=== PATIENT | female | born 1995 | race Caucasian/White ===

== ENCOUNTER 2016-09-08 13:25 | Emergency (ER) | payer OTHER | END 2016-09-08 15:28 | disposition left against medical advice (07) | LOC: UCCORT 13:25 | DX: Z53.21 Procedure and treatment not carried out due to patient leaving prior to being seen by health care provider (principal) ==

== ENCOUNTER 2016-09-09 07:24 | Emergency (ER) | payer OTHER ==
[2016-09-09 07:39] VITALS: BP 114/71
--- NOTE | 2016-09-09 08:20 | UC ---
Respiratory Complaint HPI - HPI Summary HPI Summary: FOR 10 DAYS, COUGHING- TO THE POINT OF VOMITING. SORE THROAT, HEADACHE. BODYACHES. COUGHING WORSE AT NIGHT, FEELS SHAKEY. Here with MIKAELA Chilo. she has asthma and is sopposed to be on spiriva but has not taken it in several months. has been using alb rescue inhaler, last used yesterday. has not had tylenol or nsaids today. tmax 2 days ago was 99. took leftover codeine cough syrup that did help her last night. does not have nebulizer at home. denies chance of . - History of Current Complaint Chief Complaint: UCRespiratory Stated Complaint: COUGH/SORE THROAT Time Seen by Provider: 09/09/16 07:41 Hx Last Menstrual Period: 08/09/16, HAS PERIODS EVERY 3 MONTHS - Allergies/Home Medications Allergies/Adverse Reactions: Allergies Allergy/AdvReac Type Severity Reaction Status Date / Time environmental Allergy Congestion Uncoded 09/09/16 07:32 PMH/Surg Hx/FS Hx/Imm Hx Previously Healthy: Yes Endocrine History Of: Denies: Diabetes, Thyroid Disease Cardiovascular History Of: Denies: Cardiac Disorders, Hypertension Respiratory History Of: Reports: Asthma Denies: COPD, Bronchitis GI/ History Of: Denies: Ulcer - Surgical History Surgical History: Yes Surgery Procedure, Year, and Place: T & A - Family History Known Family History: Positive: Other - no hx back problems or cancer in either parent Negative: Hypertension, Diabetes, Renal Disease - Social History Alcohol Use: Rare Substance Use Type: None Smoking Status (MU): Never Smoked Tobacco Have You Smoked in the Last Year: No Household Exposure Type: Cigarettes - Immunization History Most Recent Influenza Vaccination: FALL 2015 Hx Tetanus, Diphtheria Vaccination: Yes Vaccination Up to Date: Yes Review of Systems Constitutional: Fatigue Skin: Negative Eyes: Negative ENT: Sore Throat Respiratory: Cough - + wheezing Cardiovascular: Negative Gastrointestinal: Negative Genitourinary: Negative Motor: Negative Neurovascular: Negative Musculoskeletal: Negative Neurological: Negative Psychological: Negative All Other Systems Reviewed And Are Negative: Yes Physical Exam Triage Information Reviewed: Yes Appearance: Well-Nourished, Ill-Appearing - mild, moderate cough. speaks full sentences. Vital Signs: Initial Vital Signs Temp 98 F 09/09/16 07:33 Pulse 85 09/09/16 07:33 Resp 20 01/28/17 07:33 BP 114/71 09/09/16 07:33 Pulse Ox 100 09/09/16 07:33 Vital Signs Reviewed: Yes Eye Exam: Normal ENT: Positive: Hearing grossly normal, Pharyngeal erythema - mild, + PND, Nasal drainage, TMs normal. Negative: Tonsillar swelling, Tonsillar exudate, Muffled/ hoarse voice Dental Exam: Normal Neck exam: Normal Neck: Positive: Supple, Nontender, No Lymphadenopathy Respiratory: Positive: No accessory muscle use, Decreased breath sounds - mild, Wheezing - mild b/l expiratory wheezing and. Negative: Crackles, Rhonchi, Stridor Cardiovascular Exam: Normal Cardiovascular: Positive: RRR, No Murmur, Pulses Normal, Brisk Capillary Refill Abdominal Exam: Normal Abdomen Description: Positive: Nontender, Soft Musculoskeletal Exam: Normal Neurological Exam: Normal Psychological Exam: Normal Skin Exam: Normal UC Diagnostic Evaluation - Laboratory O2 Sat by Pulse Oximetry: 100 Respiratory Course/Dx - Course Course Of Treatment: We discusse risks of prednisone including but not limited to anxiety, agitation, insomnia, GI upset, elevated blood pressures and blood sugar readings, adrenal crisis and avascular necrosis of the hip. We also discussed the importance of compliance with maintenance asthma medication. - Differential Dx/Diagnosis Differential Diagnosis/HQI/PQRI: Asthma, Bronchitis, Sinusitis Provider Diagnoses: asthmatic bronchitis Discharge - Discharge Plan Condition: Stable Disposition: HOME Prescriptions: Amoxicillin CAP* 500 mg PO TID #30 cap Benzonatate CAP* [Tessalon CAP*] 100 mg PO TID PRN #30 cap PRN Reason: Cough Methylprednisolone [Medrol Dosepak 4 MG*] 4 mg PO DAILY #1 julio Patient Education Materials: Asthma (ED), Acute Bronchitis (ED) Referrals: Valeria Cui MD [Primary Care Provider] - 3 Days Additional Instructions: Make sure to restart the spiriva and remain compliant with it. You should use the albuterol every 4-6 hrs until 2-3 days after your symptoms resolve. fluids and rest.
== END 2016-09-09 08:36 | disposition home or self-care (01) ==
LOC: UCCORT 07:24
DX: J45.909 Unspecified asthma, uncomplicated (principal); Z77.22 Contact with and (suspected) exposure to environmental tobacco smoke (acute) (chronic)
CPT/HCPCS: 99212; G0463

== ENCOUNTER 2017-01-09 21:31 | Emergency (ER) | payer MEDICAID, OTHER ==
[2017-01-09] MEDS ORDERED: Amoxicillin/Clavulanate TAB* 875 MG PO ONE (22:17)
[2017-01-09] MEDS ORDERED: Acetaminop/Codeine 30 MG TAB* 1 TAB (300 MG/30 MG) PO ONE (22:18)
[2017-01-09 22:22] VITALS: BP 111/69
--- NOTE | 2017-01-09 22:50 | RAD ---
INDICATION: Headaches after head injury COMPARISON: None TECHNIQUE: Noncontrast axial source images were acquired from the skull base to the vertex. FINDINGS: Ventricles/sulci: The ventricles and cisterns are normal in size and configuration for age. Brain parenchyma: There is no focal parenchymal finding, evidence of intracranial mass, or intracranial mass effect. Intracranial hemorrhage:None. Extra-axial spaces: There are no abnormal extra axial fluid collections or evidence of extra-axial mass. Calvarium: There is no calvarial fracture or other calvarial abnormality. Scalp: There is no evidence of scalp or extracalvarial soft tissue abnormality. Paranasal sinuses/mastoid: The paranasal sinuses and mastoid air cells are clear. Other: None. IMPRESSION: NEGATIVE EXAMINATION
--- NOTE | 2017-01-09 23:01 | UC ---
Head Injury HPI - HPI Summary HPI Summary: The patient comes in today for: 1. Head injury: Onset: 2 days ago. Palliative/provocative: Nothing makes her headache better or worse other than light. Quality: Ache Region: Shifts all around. Severity: 9/10 but she is not crying. Time: Constant. Associated symptoms: Event: She was 4 feet up on a playground item and fell backwards hitting her head on "yaritza ground." No LOC. She laid there for a few seconds. She had a migraine at that time. She did not see anyone for this. She still has a headache. She states that she has nausea. No vomiting. * - History Of Current Complaint Chief Complaint: UCHeadInjury Stated Complaint: HEAD INJURY PT FELL X 2 DAYS AGO Time Seen by Provider: 01/09/17 22:29 Hx Obtained From: Patient Hx Last Menstrual Period: States she has menses every 3 month; LMP 11/08/16 - Allergies/Home Medications Allergies/Adverse Reactions: Allergies Allergy/AdvReac Type Severity Reaction Status Date / Time environmental Allergy Congestion Uncoded 01/09/17 22:05 PMH/Surg Hx/FS Hx/Imm Hx Previously Healthy: Yes - No DM, HTN, Heart dz. Respiratory History: Asthma Psychological History: Anxiety - Surgical History Surgical History: Yes Surgery Procedure, Year, and Place: T & A - Family History Known Family History: Positive: Other - no hx back problems or cancer in either parent Negative: Hypertension, Diabetes, Renal Disease - Social History Alcohol Use: Rare Substance Use Type: None Smoking Status (MU): Never Smoked Tobacco Have You Smoked in the Last Year: No Household Exposure Type: Cigarettes - Immunization History Most Recent Influenza Vaccination: FALL 2015 Most Recent Tetanus Shot: UTD Hx Tetanus, Diphtheria Vaccination: Yes Vaccination Up to Date: Yes Review of Systems Constitutional: Negative Skin: Negative Eyes: Negative ENT: Negative Respiratory: Negative, Cough - Little bit of mucous. Cardiovascular: Negative Gastrointestinal: Negative Genitourinary: Negative Motor: Negative Neurovascular: Negative All Other Systems Reviewed And Are Negative: Yes Physical Exam Triage Information Reviewed: Yes Appearance: Well-Appearing, No Pain Distress, Well-Nourished Vital Signs: Initial Vital Signs Temp 98.6 F 01/09/17 22:07 Pulse 72 01/09/17 22:07 Resp 18 01/09/17 22:07 BP 111/69 01/09/17 22:07 Pulse Ox 100 01/09/17 22:07 Vital Signs Reviewed: Yes Eyes: Positive: Conjunctiva Clear ENT: Positive: Hearing grossly normal, Other: - No hemotympanum bilaterally.. Negative: Pharyngeal erythema, Nasal congestion, Nasal drainage, TM bulging, TM dull, TM red, Tonsillar swelling, Tonsillar exudate Dental: Negative: Gross Decay/Caries @, Dental Fracture @ Neck: Positive: Supple, Nontender, No Lymphadenopathy. Negative: Nuchal Rigidity Respiratory: Positive: Lungs clear, No respiratory distress, No accessory muscle use. Negative: Crackles, Wheezing Cardiovascular: Positive: RRR, No Murmur Abdomen Description: Positive: Nontender, No Organomegaly, Soft. Negative: Distended, Guarding Musculoskeletal: Positive: Strength Intact, ROM Intact Neurological: Positive: Alert, Muscle Tone Normal, Other: - Neurologic exam: Inspection: No fasciculations. Tone: No rigidity. Strenth: Upper extremity: symmetrical and appropriate for age. Lower extremity: symmetrical and appropriate for age. Cranial nerves: I-XII normal. Reflexes: Upper extremity Biceps: 2+/2 x 2 Triceps: 2+/2 x 2 Brachioradialis: 2+/2 x 2 Lower extremity: Achilles: 2+/2 x 2 Patellar: 2+/2 x 2 Babinski: downgoing bilaterally. Sensation: No complaints of loss of sensation. Coordination: Upper extremity: Finger to nose, patting of thighs (and alternating) and finger to thumb tests: Normal for both extremities. Lower extremity: Heel up and down mcintosh: Normal for both extremities. Gait: Heel to toe: Normal REgular walking: Normal Rhomberg: Normal. Psychological: Positive: Normal Response To Family, Age Appropriate Behavior, Consolable Skin: Positive: Other - No guzmán sign or raccoon eyes bilaterally.. Negative: rashes, breakdown Head Injury Course/Dx - Differential Dx/Diagnosis Provider Diagnoses: head injury. concussion Discharge - Discharge Plan Condition: Stable Disposition: HOME Patient Education Materials: Concussion (ED), Head Injury (ED) Referrals: Valeria Cui MD [Primary Care Provider] -
[2017-01-09] MEDS ORDERED: Naproxen TAB* 250 MG PO ONE (23:09)
[2017-01-09] MEDS ORDERED: Ondansetron ODT TAB* 4 MG PO ONE (23:09)
== END 2017-01-09 23:25 | disposition home or self-care (01) ==
LOC: UCCORT 21:31
DX: S06.0X0A Concussion without loss of consciousness, initial encounter (principal); W09.8XXA Fall on or from other playground equipment, initial encounter; Y93.89 Activity, other specified; Y92.838 Other recreation area as the place of occurrence of the external cause; J45.909 Unspecified asthma, uncomplicated; F41.9 Anxiety disorder, unspecified; Z77.22 Contact with and (suspected) exposure to environmental tobacco smoke (acute) (chronic)
CPT/HCPCS: 70450; 99212; A9270-GY; G0463

== ENCOUNTER 2017-06-04 13:00 | Emergency (ER) | payer MEDICAID ==
[2017-06-04 13:37] VITALS: BP 127/79
--- NOTE | 2017-06-04 14:43 | UC ---
Neck Pain HPI - HPI Summary HPI Summary: Pt has a large dog at home and went to keep him from getting outside. The dog turned quickly and pulled pt's right shoulder forward in an abrupt motion. Pain to palpation and with movement since. Has not tried anything OTC. - History of Current Complaint Hx Obtained From: Patient Hx Last Menstrual Period: 05/09/17 ?: No Onset/Duration Of Injury/Symptoms: Hours Timing: Constant Onset/Duration: Sudden Onset - Last night Severity: Moderate Pain Intensity: 7 Pain Scale Used: 0-10 Numeric Location: Discrete At: - Right shoulder and right trap Character: Dull, Aching Aggravating Factors: Position, Movement Alleviating Factors: Position, Heat, Ice Associated Signs & Symptoms: Negative: Swelling, Redness, Bruising, Fever, Headache, Paresthesia <Calin Patel - Last Filed: 06/04/17 15:19> <Yuki Cui - Last Filed: 06/05/17 20:43> - History of Current Complaint Chief Complaint: UCUpperExtremity Stated Complaint: NECK/RIGHT SHOULDER/UPPER BACK PAIN Time Seen by Provider: 06/04/17 14:43 - Allergies/Home Medications Allergies/Adverse Reactions: Allergies Allergy/AdvReac Type Severity Reaction Status Date / Time environmental Allergy Congestion Uncoded 06/04/17 13:38 PMH/Surg Hx/FS Hx/Imm Hx - Additional Past Medical History Additional PMH: Chronic low back pain Previously Healthy: Yes - Surgical History Surgical History: Yes Surgery Procedure, Year, and Place: T & A - Family History Known Family History: Positive: Other - no hx back problems or cancer in either parent Negative: Hypertension, Diabetes, Renal Disease - Social History Alcohol Use: Occasionally Substance Use Type: None Smoking Status (MU): Never Smoked Tobacco Have You Smoked in the Last Year: No Household Exposure Type: Cigarettes - Immunization History Most Recent Influenza Vaccination: FALL 2015 Most Recent Tetanus Shot: UTD Hx Tetanus, Diphtheria Vaccination: Yes Vaccination Up to Date: Yes <Calin Patel - Last Filed: 06/04/17 15:19> Review Of Systems Constitutional: Positive: Negative. Negative: Fever, Chills Skin: Positive: Negative. Negative: Rash, Bruising Respiratory: Positive: Negative. Negative: Shortness Of Breath, Cough Cardiovascular: Positive: Negative Musculoskeletal: Positive: Decreased ROM - right shoulder, Other: - pain right shoulder. Negative: Edema Neurological: Positive: Negative. Negative: Headache, Paresthesia Psychological: Positive: Negative All Other Systems Reviewed And Are Negative: Yes <Calin Patel - Last Filed: 06/04/17 15:19> Physical Exam Triage Information Reviewed: Yes Appearance: Well-Appearing, Well-Nourished Vital Signs: Initial Vital Signs Temp 97.7 F 06/04/17 13:32 Pulse 68 06/04/17 13:32 Resp 18 06/04/17 13:32 BP 127/79 06/04/17 13:32 Pulse Ox 100 06/04/17 13:32 Vital Signs Reviewed: Yes Neck exam: Normal Neck: Positive: Other: - FROM. No crepitus Respiratory Exam: Normal Respiratory: Positive: Chest non-tender, Lungs clear Cardiovascular Exam: Normal Cardiovascular: Positive: RRR, No Murmur Musculoskeletal: Positive: No Edema, Strength Limited @ - Right shoulder due to pain, ROM Limited @ - Right shoulder. Can flex to 110deg with pain., Other: - TTP over trapezius throughout. Negative spurlings. Negative mendez. Negative empty can. Negative apprehension. Neurological Exam: Normal Neurological: Positive: Alert Psychological Exam: Normal Psychological: Positive: Age Appropriate Behavior Skin Exam: Normal Skin: Negative: rashes <Calin Patel - Last Filed: 06/04/17 15:19> Vital Signs: Initial Vital Signs Temp 97.7 F 06/04/17 13:32 Pulse 68 06/04/17 13:32 Resp 18 06/04/17 13:32 BP 127/79 06/04/17 13:32 Pulse Ox 100 06/04/17 13:32 <Yuki Cui - Last Filed: 06/05/17 20:43> Diagnostics - Laboratory Diagnostic Studies Completed/Ordered: Shoulder XR negative <Calin Patel - Last Filed: 06/04/17 15:19> Neck Pain Course/Dx - Course Course Of Treatment: Pt has not tried any OTC methods for relief. Mentions that she has some flexeril at home from prior back pain. Shoulder XR negative. Advised to rest and apply heat to the area. Can take ibuprofen 800mg q6-8hrs prn pain or her at home flexeril at bedtime. If symptoms persist, follow up with PCP or orthopedics. - Differential Dx/Diagnosis Differential Dx/HQI/PQRI: Dislocation, Sprain, Strain Provider Diagnoses: Shoulder strain <Calin Patel - Last Filed: 06/04/17 15:19> Discharge <Calin Patel - Last Filed: 06/04/17 15:19> <Yuki Cui - Last Filed: 06/05/17 20:43> - Discharge Plan Condition: Stable Disposition: HOME Patient Education Materials: Shoulder Sprain (ED) Forms: *Work Release Referrals: Valeria Cui MD [Primary Care Provider] - 2 Weeks Additional Instructions: Rest, ice, and apply heat to your shoulder over the next two days, but continue use as tolerated. Over the counter ibuprofen every 6-8 hours for pain, may also take your previously prescribed Flexeril at bedtime for pain. Follow up with your PCP in 1-2 weeks if symptoms persist. If you develop new symptoms or your symptoms worsen - please call our office or go to the ED. Attestation Statement User Type: Provider - I was available for consult. This patient was seen by the AURELIO. The patient was not presented to, seen by, or examined by me. -Carolyn <Yuki Cui - Last Filed: 06/05/17 20:43>
--- NOTE | 2017-06-04 15:14 | RAD ---
HISTORY: Right shoulder pain COMPARISONS: None VIEWS: 4, Frontal internal rotation, external rotation, outlet, and axillary views of the right shoulder FINDINGS: BONE DENSITY: Normal. BONES: There is no displaced fracture. JOINTS: There is no arthropathy. ALIGNMENT: There is no dislocation. SOFT TISSUES: Unremarkable. OTHER FINDINGS: None. IMPRESSION: NO ACUTE OSSEOUS INJURY. IF SYMPTOMS PERSIST, RECOMMEND REPEAT IMAGING.
== END 2017-06-04 15:35 | disposition home or self-care (01) ==
LOC: UCCORT 13:00
DX: S46.911A Strain of unspecified muscle, fascia and tendon at shoulder and upper arm level, right arm, initial encounter (principal); X50.0XXA Overexertion from strenuous movement or load, initial encounter; Y93.89 Activity, other specified; Y92.008 Other place in unspecified non-institutional (private) residence as the place of occurrence of the external cause; Z77.22 Contact with and (suspected) exposure to environmental tobacco smoke (acute) (chronic)
CPT/HCPCS: 99212; G0463

== ENCOUNTER 2017-09-26 13:09 | Emergency (ER) | payer OTHER ==
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
[2017-09-26 15:38] VITALS: BP 117/64
--- NOTE | 2017-09-26 15:43 | UC ---
Respiratory Complaint HPI - HPI Summary HPI Summary: 22 yo female with f/c, cough, runny nose, myalgias exposure to flu no cp or sob no n/v/d - History of Current Complaint Chief Complaint: UCRespiratory Stated Complaint: FLU SX'S Time Seen by Provider: 09/26/17 15:30 Hx Obtained From: Patient Hx Last Menstrual Period: Jul. BCP GIVES PERIOD EVERY 3 MONTHS Onset/Duration: Gradual Onset, Lasting Days Timing: Constant Severity Initially: Severe Severity Currently: Severe Pain Intensity: 10 Pain Scale Used: 0-10 Numeric Character: Cough: Nonproductive Aggravating Factors: Nothing Alleviating Factors: Other Associated Signs And Symptoms: Positive: Fever, Chills, Nasal Congestion - Allergies/Home Medications Allergies/Adverse Reactions: Allergies Allergy/AdvReac Type Severity Reaction Status Date / Time environmental Allergy Congestion Uncoded 09/26/17 15:29 PMH/Surg Hx/FS Hx/Imm Hx Previously Healthy: Yes Respiratory History: Asthma, Bronchitis, Pneumonia - Surgical History Surgical History: Yes Surgery Procedure, Year, and Place: T & A - Family History Known Family History: Positive: Other - no hx back problems or cancer in either parent Negative: Hypertension, Diabetes, Renal Disease - Social History Alcohol Use: Occasionally Substance Use Type: None Smoking Status (MU): Never Smoked Tobacco Have You Smoked in the Last Year: No Household Exposure Type: Cigarettes - Immunization History Most Recent Influenza Vaccination: FALL 2015 Most Recent Tetanus Shot: UTD Hx Tetanus, Diphtheria Vaccination: Yes Vaccination Up to Date: Yes Review of Systems Constitutional: Fever, Chills, Fatigue Skin: Negative Eyes: Negative ENT: Nasal Discharge, Sinus Congestion Respiratory: Cough Cardiovascular: Negative Gastrointestinal: Negative Genitourinary: Negative Motor: Negative Neurovascular: Negative Musculoskeletal: Myalgia Neurological: Negative Psychological: Negative Is Patient Immunocompromised?: No All Other Systems Reviewed And Are Negative: Yes Physical Exam Triage Information Reviewed: Yes Appearance: Well-Appearing, No Pain Distress, Well-Nourished Vital Signs: Initial Vital Signs Temp 100.7 F 09/26/17 15:31 Pulse 118 09/26/17 15:31 Resp 20 09/26/17 15:31 BP 117/64 09/26/17 15:31 Pulse Ox 100 09/26/17 15:31 Vital Signs Reviewed: Yes Eyes: Positive: Conjunctiva Clear ENT: Positive: Hearing grossly normal, Nasal congestion, Uvula midline. Negative: Tonsillar swelling, Tonsillar exudate, Trismus, Muffled voice, Hoarse voice, Sinus tenderness Neck: Positive: Supple, Nontender, No Lymphadenopathy Respiratory: Positive: Lungs clear, Normal breath sounds, No respiratory distress, No accessory muscle use Cardiovascular: Positive: RRR, No Murmur Bowel Sounds: Positive: Present Musculoskeletal: Positive: ROM Intact, No Edema Neurological: Positive: Alert Psychological Exam: Normal Skin Exam: Normal UC Diagnostic Evaluation - Laboratory O2 Sat by Pulse Oximetry: 100 - normal/not hypoxic Respiratory Course/Dx - Differential Dx/Diagnosis Provider Diagnoses: influenza or influenzas like illness Discharge - Discharge Plan Condition: Stable Disposition: HOME Prescriptions: Oseltamivir CAP* [Tamiflu CAP*] 75 mg PO BID #10 cap Patient Education Materials: Influenza (ED) Forms: *School Release, *Work Release Referrals: Valeria Cui MD [Primary Care Provider] - 6 Days (if not better) Additional Instructions: recheck for new or worsening symptoms rest fluids tylenol or advil
== END 2017-09-26 15:50 | disposition home or self-care (01) ==
LOC: UCCORT 13:09
DX: J11.1 Influenza due to unidentified influenza virus with other respiratory manifestations (principal)
CPT/HCPCS: 99212; G0463

== ENCOUNTER 2018-04-15 09:18 | Emergency (ER) | payer OTHER ==
[2018-04-15] MEDS ORDERED: NS 0.9% 1000 ML* 1,000 ML IV ONE ×2 (10:26→11:30)
[2018-04-15] MEDS ORDERED: Ketorolac INJ* 30 MG/ML 1 ML VIAL IV PUSH ONE (10:26)
[2018-04-15] MEDS ORDERED: Ondansetron ODT TAB* 4 MG PO ONE (10:26)
[2018-04-15] MEDS ORDERED: Acetaminophen TAB* 325 MG PO ONE (11:30)
[2018-04-15] MEDS ORDERED: Ondansetron INJ* 2 MG/ML VIAL IV ONE (11:30)
--- NOTE | 2018-04-15 12:21 | RAD ---
Indication: Headaches. CT of the brain performed without IV contrast. Comparison is made with previous exam dated January 09, 2017. Ventricular structures are midline. No midline shift is noted. The extra-axial spaces are unremarkable. There is no other high or low density lesions noted. No intracranial mass or hemorrhage is noted. Mastoid air cells and paranasal sinuses are otherwise unremarkable. IMPRESSION: There is no evidence of intracranial mass or hemorrhage noted.
[2018-04-15 12:35] VITALS: BP 119/75
--- NOTE | 2018-04-15 12:59 | UC ---
Headache HPI - HPI Summary HPI Summary: 22-year-old woman coming in complaining of headache for 3 days. She has a history of migraines. She was diagnosed with migraines 3 months ago. She has not had any brain imaging. No fever. No chills. No upper respiratory tract infection symptoms. She started her period 2 days ago. This is early for her as she normally has her period every 3 months. She is on control pills. She denies any concerns for UTI or an STI. There is no weakness or numbness. No difficulty with vision or speech. The headache is frontal and occipital and in the upper neck. It is a 10 out of 10 pain. She is nauseous and she's been vomiting. She feels dehydrated. - History Of Current Complaint Chief Complaint: UCHeadashaquille Stated Complaint: MIGRAINE (3 DAYS) Time Seen by Provider: 04/15/18 10:15 Hx Last Menstrual Period: 04/09/18 Pain Intensity: 10 - Allergies/Home Medications Allergies/Adverse Reactions: Allergies Allergy/AdvReac Type Severity Reaction Status Date / Time environmental Allergy Congestion Uncoded 04/15/18 09:57 Home Medications: Home Medications Ondansetron [Zofran Odt] 4 mg PO Q4H PRN 04/15/18 [History Confirmed 04/15/18] SUMAtriptan TAB* [Imitrex TAB*] 50 mg PO SEE INSTRUCTIONS PRN 04/15/18 [History Confirmed 04/15/18] PMH/Surg Hx/FS Hx/Imm Hx Other Endocrine History: NO DM Neurological History: Migraine - Surgical History Surgical History: Yes Surgery Procedure, Year, and Place: T & A. arthroscopy R hip - Family History Known Family History: Positive: Other - no hx back problems or cancer in either parent Negative: Hypertension, Diabetes, Renal Disease - Social History Alcohol Use: Occasionally Substance Use Type: None Smoking Status (MU): Never Smoked Tobacco Have You Smoked in the Last Year: No Household Exposure Type: Cigarettes - Immunization History Most Recent Influenza Vaccination: FALL 2015 Most Recent Tetanus Shot: UTD Hx Tetanus, Diphtheria Vaccination: Yes Vaccination Up to Date: Yes Review of Systems Constitutional: Fatigue Skin: Negative Eyes: Negative ENT: Negative Respiratory: Negative Cardiovascular: Chest Pain - Complain of splinting chest pain that started during a vomiting episode Gastrointestinal: Negative Genitourinary: Negative Motor: Negative Neurovascular: Negative Musculoskeletal: Negative Neurological: Negative Psychological: Negative Is Patient Immunocompromised?: No All Other Systems Reviewed And Are Negative: Yes Physical Exam Triage Information Reviewed: Yes Appearance: Pain Distress - Mild pain distress Vital Signs: Initial Vital Signs Temp 98.3 F 04/15/18 10:00 Pulse 85 04/15/18 10:00 Resp 16 04/15/18 10:00 BP 127/78 04/15/18 10:00 Pulse Ox 100 04/15/18 10:00 Vital Signs Reviewed: Yes Eye Exam: Normal Eyes: Positive: Conjunctiva Clear ENT: Positive: Pharynx normal, Other - Oral mucosa slightly dry Neck exam: Normal Neck: Positive: Supple Respiratory: Positive: Lungs clear, Normal breath sounds Cardiovascular: Positive: RRR Abdominal Exam: Normal Abdomen Description: Positive: Nontender Bowel Sounds: Positive: Present Musculoskeletal: Positive: Strength Intact, ROM Intact Neurological Exam: Normal Psychological Exam: Normal Skin Exam: Normal Headache Course/Dx - Course Course Of Treatment: Indication: Headaches. CT of the brain performed without IV contrast. Comparison is made with previous exam dated. January 09, 2017. Ventricular structures are midline. No midline shift is noted. The extra-axial spaces are. unremarkable. There is no other high or low density lesions noted. No intracranial mass or. hemorrhage is noted. Mastoid air cells and paranasal sinuses are otherwise unremarkable. IMPRESSION: There is no evidence of intracranial mass or hemorrhage noted. . <Electronically signed by Lynne Wills MD in OV> 04/15/18 1217. After 2 L of fluid and Zofran 4 mg 2 and Toradol 30 mg IV and acetaminophen 975 mg by mouth the headache has gone from a 10 out of 10 to a 4- 5 out of 10. She has tolerated crackers and jamal mukesh. She is still mildly nauseous. We discussed the CT results. The plan at this time is to prescribe Zofran and to have the patient rest and a dark room at home. If her headache worsens or she starts vomiting again and is getting dehydrated she is to get reevaluated in the emergency department. Otherwise follow-up with primary medical doctor. - Differential Dx/Diagnosis Provider Diagnoses: HEADACHE. VOMITING. DEHYDRATION Discharge - Sign-Out/Discharge Documenting (check all that apply): Patient Departure All imaging exams completed and their final reports reviewed: Yes - Discharge Plan Condition: Stable Disposition: HOME Prescriptions: Ondansetron ODT TAB* [Zofran 4 MG Odt TAB*] 4 mg PO Q6H PRN #10 tab.odt PRN Reason: Nausea Patient Education Materials: Dehydration (ED), Acute Headache (ED), Acute Nausea and Vomiting (ED) Forms: *Work Release Referrals: Valeria Cui MD [Primary Care Provider] - Additional Instructions: FOLLOW UP WITH YOUR DOCTOR. GO TO THE EMERGENCY DEPARTMENT FOR ANY WORSENING OF YOUR CONDITION. - Billing Disposition and Condition Condition: STABLE Disposition: Home
== END 2018-04-15 13:37 | disposition home or self-care (01) ==
LOC: UCCORT 09:18
DX: R51 Headache (principal); R11.10 Vomiting, unspecified; E86.0 Dehydration
CPT/HCPCS: 70450; 81003; 84702; 96360; 96361; 96374; 96375; 99212; A9270-GY; G0463; J1885; J2405

== ENCOUNTER 2018-07-17 17:24 | Emergency (ER) | payer OTHER ==
[2018-07-17 20:28] VITALS: BP 97/66
--- NOTE | 2018-07-17 21:37 | UC ---
General HPI - HPI Summary HPI Summary: pt presents to the today with complaints of sore throat, fatigue, and headache and fever. - History of Current Complaint Chief Complaint: UCGeneralIllness Stated Complaint: BODY ACHES,HAWKINS,FEVER,ST Hx Obtained From: Patient Hx Last Menstrual Period: 04/2018 Onset/Duration: Gradual Onset Onset Severity: Mild Current Severity: Mild Pain Intensity: 8 - Allergy/Home Medications Allergies/Adverse Reactions: Allergies Allergy/AdvReac Type Severity Reaction Status Date / Time environmental Allergy Congestion Uncoded 07/17/18 20:21 Home Medications: Home Medications Acetaminophen TAB* [Tylenol TAB*] 325 tab PO Q4H PRN 07/17/18 [History Confirmed 07/17/18] Naratriptan HCl 1 mg PO Q4HR PRN 07/17/18 [History Confirmed 07/17/18] PMH/Surg Hx/FS Hx/Imm Hx Previously Healthy: Yes - Surgical History Surgical History: Yes Surgery Procedure, Year, and Place: T & A. arthroscopy R hip - Family History Known Family History: Positive: Other - no hx back problems or cancer in either parent Negative: Hypertension, Diabetes, Renal Disease - Social History Alcohol Use: Occasionally Substance Use Type: None Smoking Status (MU): Never Smoked Tobacco Have You Smoked in the Last Year: No Household Exposure Type: Cigarettes - Immunization History Most Recent Influenza Vaccination: FALL 2015 Most Recent Tetanus Shot: UTD Hx Tetanus, Diphtheria Vaccination: Yes Vaccination Up to Date: Yes Review of Systems All Other Systems Reviewed And Are Negative: No Constitutional: Positive: Fever, Fatigue Skin: Positive: Negative Eyes: Positive: Negative ENT: Positive: Sore Throat. Negative: Epistaxis, Ear Ache, Nasal Discharge, Sinus Congestion Respiratory: Positive: Negative Cardiovascular: Positive: Negative Gastrointestinal: Positive: Negative Genitourinary: Negative: Hematuria, Frequency Motor: Positive: Negative Neurovascular: Positive: Negative Musculoskeletal: Positive: Arthralgia Neurological: Positive: Headache Psychological: Positive: Negative Is Patient Immunocompromised?: No Physical Exam Triage Information Reviewed: Yes Completion Of Physical Exam Limited Due To: Altered Mental Status Appearance: No Pain Distress, Well-Nourished Vital Signs: Initial Vital Signs Temp 98.9 F 07/17/18 20:24 Pulse 90 07/17/18 20:24 Resp 15 07/17/18 20:24 BP 97/66 07/17/18 20:24 Pulse Ox 100 07/17/18 20:24 Vital Signs Reviewed: Yes Eyes: Positive: Conjunctiva Clear ENT Exam: Normal Neck exam: Normal Respiratory Exam: Normal Cardiovascular: Positive: RRR, No Murmur Abdomen Description: Positive: Nontender, Soft Bowel Sounds: Positive: Present Musculoskeletal Exam: Normal Neurological Exam: Normal Psychological Exam: Normal Skin Exam: Normal Course/Dx - Course Course Of Treatment: influenza A/B negative. pt is non-toxic. pt encouraged to take tyelnol and motrin for bodyaches or any fever. she was also encouraged to f/u with pcp. - Diagnoses Provider Diagnosis: Viral illness Discharge - Sign-Out/Discharge Documenting (check all that apply): Patient Departure All imaging exams completed and their final reports reviewed: No Studies - Discharge Plan Condition: Stable Disposition: HOME Patient Education Materials: Viral Syndrome (ED) Forms: *Work Release Referrals: Valeria Cui MD [Primary Care Provider] - Additional Instructions: take tylenol and motrin for pain. If you are worse, go to the ED for further evaluation. drink plenty of fluids. - Billing Disposition and Condition Condition: STABLE Disposition: Home
== END 2018-07-17 21:42 | disposition home or self-care (01) ==
LOC: UCCORT 17:24
DX: B34.9 Viral infection, unspecified (principal)
CPT/HCPCS: 99211; G0463

== ENCOUNTER 2019-06-30 13:02 | Emergency (ER) | payer BC ==
--- NOTE | 2019-06-30 14:15 | ED ---
Complex/Multi-Sys Presentation - HPI Summary HPI Summary: Patient is a 23 y/o F presenting to the ED for a chief complaint of generalized body aches that began the night of 06/29/19. Patient is present with a male friend. Patient is 7 weeks . She was told to go to the ED by her OB. Patient notes nausea, intermittent abdominal pain described as cramping, nasal congestion, rhinorrhea, and a sore throat that began a few days ago. Patient denies fever, chills, vaginal discharge, or vaginal bleeding. PSHx is significant for a hip arthroscopy and tonsillectomy. Patient denies tobacco, alcohol, or drug use. - History Of Current Complaint Chief Complaint: EDFluSymptoms Time Seen by Provider: 06/30/19 14:07 Hx Obtained From: Patient Onset/Duration: Sudden Onset, Still Present Timing: Constant Severity Currently: Moderate Severity Initially: Moderate Associated Signs And Symptoms: Positive: Nausea, Abdominal Pain - Intermittent, Other - Positive nasal congestion, rhinorrhea, and sore throat; negative chills , vaginal discharge, or vaginal bleeding. Negative: Fever - Allergies/Home Medications Allergies/Adverse Reactions: Allergies Allergy/AdvReac Type Severity Reaction Status Date / Time environmental Allergy Congestion Uncoded 07/17/18 20:21 Home Medications: Home Medications Cyclobenzaprine TAB* [Flexeril 10 MG TAB*] 10 mg PO BID PRN 06/30/19 [History Confirmed 06/30/19] Vits96/Iron Fum/Folic [ Tablet] 1 tab PO DAILY 06/30/19 [ History Confirmed 06/30/19] PMH/Surg Hx/FS Hx/Imm Hx Previously Healthy: Yes Endocrine/Hematology History: Denies: Hx Diabetes, Hx Thyroid Disease Cardiovascular History: Denies: Hx Hypercholesterolemia, Hx Hypertension Respiratory History: Reports: Hx Asthma, Other Respiratory Problems/Disorders - DX WITH PNEUMONIA 9 DAYS AGO Denies: Hx Chronic Obstructive Pulmonary Disease (COPD) GI History: Denies: Hx Ulcer Sensory History: Denies: Hx Legally Blind, Hx Deafness Opthamlomology History: Denies: Hx Legally Blind EENT History: Denies: Hx Deafness - Surgical History Surgical History: Yes Surgery Procedure, Year, and Place: T & A. arthroscopy R hip Infectious Disease History: No Infectious Disease History: Denies: Hx Hepatitis, Hx Human Immunodeficiency Virus (HIV), Traveled Outside the [place] in Last 30 Days - Family History Known Family History: Positive: Other - no hx back problems or cancer in either parent Negative: Hypertension, Diabetes, Renal Disease - Social History Occupation: Employed Full-time Lives: With Family Alcohol Use: None Hx Substance Use: No Substance Use Type: Reports: None Hx Tobacco Use: No Smoking Status (MU): Never Smoked Tobacco Have You Smoked in the Last Year: No Review of Systems Negative: Fever, Chills Positive: Sore Throat, Nasal Discharge, Other - Positive nasal discharge Positive: Abdominal Pain - Described as cramping Positive: other - Negative vaginal bleeding. Negative: discharge - Vaginal Positive: Myalgia - Generalized body aches All Other Systems Reviewed And Are Negative: Yes Physical Exam - Summary Physical Exam Summary: VITAL SIGNS: Reviewed. GENERAL: Patient is a well-developed and nourished FEMALE who is lying comfortable in the stretcher. Patient is not in any acute respiratory distress. HEAD AND FACE: No signs of trauma. No ecchymosis, hematomas or skull depressions. No sinus tenderness. Rhinorrhea. EYES: PERRLA, EOMI x 2, No injected conjunctiva, no nystagmus. EARS: Hearing grossly intact. Ear canals and tympanic membranes are within normal limits. MOUTH: Oropharynx within normal limits. NECK: Supple, trachea is midline, no adenopathy, no JVD, no carotid bruit, no c- spine tenderness, neck with full ROM. CHEST: Symmetric, no tenderness at palpation. LUNGS: Clear to auscultation bilaterally. No wheezing or crackles. CVS: Regular rate and rhythm, S1 and S2 present, no murmurs or gallops appreciated. ABDOMEN: Soft, non-tender. No signs of distention. No rebound, no guarding, and no masses palpated. Bowel sounds are normal. EXTREMITIES: FROM in all major joints, no edema, no cyanosis or clubbing. NEURO: Alert and oriented x 3. No acute neurological deficits. Speech is normal and follows commands. SKIN: Dry and warm. Triage Information Reviewed: Yes Vital Signs On Initial Exam: Initial Vitals Temp Pulse Resp BP Pulse Ox 99.1 F 84 16 123/68 100 06/30/19 13:04 06/30/19 13:04 06/30/19 13:04 06/30/19 13:04 06/30/19 13:04 Vital Signs Reviewed: Yes Procedures - Sedation Patient Received Moderate/Deep Sedation with Procedure: No Diagnostics - Vital Signs Vital Signs Temp Pulse Resp BP Pulse Ox 06/30/19 14:05 97.2 F 80 18 118/67 100 06/30/19 13:04 99.1 F 84 16 123/68 100 - Laboratory Result Diagrams: 06/30/19 14:31 06/30/19 14:31 Lab Statement: Any lab studies that have been ordered have been reviewed, and results considered in the medical decision making process. Complex Multi-Symp Course/Dx Assessment/Plan: This patient is a 23-year-old female who presents to the emergency room with a chief complaint of having a runny nose, sore throat, body aches, nasal congestion, and some abdominal cramping. Patient reports that she is 7 weeks however she denies any vaginal bleeding or vaginal discharge. The abdominal cramping and pain has resolved. Blood work is without any significant abnormality, no WBCs or CRP. Urinalysis is negative for UTI, influenza A and B is negative. I believe that the patient has a viral infection. The patient is not toxic or ill looking and she doesnt have any abdominal cramping or vaginal bleeding but has minimal discharge. Therefore the patient will be discharged home to follow-up with her primary care physician and her EDUCATIONAL TECHNICIAN doctor. She was recommended to return to the emergency room if she develops any other symptoms. She understands and agrees. - Diagnoses Provider Diagnoses: URI (upper respiratory infection) Discharge ED - Sign-Out/Discharge Documenting (check all that apply): Patient Departure - Discharge - Discharge Plan Condition: Stable Disposition: HOME Patient Education Materials: Upper Respiratory Infection (ED) Forms: *Work Release Referrals: [facility] [Outside] Additional Instructions: FOLLOW UP WITH YOUR PRIMARY CARE PROVIDER WITHIN 2-3 DAYS. RETURN TO THE ED FOR ANY WORSENING OR NEW SYMPTOMS. - Billing Disposition and Condition Condition: STABLE Disposition: Home - Attestation Statements Document Initiated by Scribe: Yes Documenting Scribe: Arlen Saunders Provider For Whom Scribe is Documenting (Include Credential): Adiel Watts MD Scribe Attestation: Arlen Marshall, scribed for Adiel Watts MD on 06/30/19 at 1803. Scribe Documentation Reviewed: Yes Provider Attestation: The documentation as recorded by the scribe, Arlen Saunders accurately reflects the service I personally performed and the decisions made by me, Adiel Watts MD Status of Scribe Document: Viewed
[2019-06-30 14:40] LABS: ABS Eosinophils 0.1 10^3/ul (0-0.6); ABS Lymphocytes 1.7 10^3/ul (1.0-4.8); ABS Monocytes 0.6 10^3/ul (0-0.8); Eosinophil % 1.7 %; Hematocrit 39 % (35-47); Hemoglobin 13.7 g/dL (12.0-16.0); Lymphocyte % 26.1 %; Mean Corpuscular HGB Conc 35 g/dL (31-36); Mean Corpuscular Hemoglobin 32 pg (27-31); Mean Corpuscular Volume 90 fL (80-97); Mean Platelet Volume 8.8 fL (7.4-10.4); Platelet Count 190 10^3/uL (150-450); Red Blood Count 4.36 10^6 /uL (3.70-4.87); Red Cell Distribution Width 13 % (10-15); White Blood Count 6.4 10^3/uL (3.5-10.8)
[2019-06-30 15:16] LABS: Albumin 3.9 g/dL (3.2-5.2); Albumin/Globulin Ratio 1.3 (1-3); BUN/Creatinine Ratio 11.3 (8-20); C Reactive Protein 3.38 mg/L (<8.01); EGFR African American 124.6 (>60); EGFR Non-African American 102.9 (>60); Globulin 2.9 g/dL (2-4); Potassium 3.7 mmol/L (3.5-5.0); Total Bilirubin 0.4 mg/dL (0.2-1.0); Total Protein 6.8 g/dL (6.4-8.9)
[2019-06-30 15:29] LABS: Urine Appearance Clear; Urine Bilirubin Negative (Negative); Urine Blood Negative (Negative); Urine Color Colorless; Urine Glucose Negative (Negative); Urine Ketones Negative (Negative); Urine Nitrite Negative (Negative); Urine Protein Negative (Negative); Urine Specific Gravity 1.005 (1.010-1.030); Urine Urobilinogen Negative (Negative)
[2019-06-30 15:59] LABS: Influenza A Molecular NEGATIVE (Negative); Influenza B Molecular NEGATIVE (Negative)
[2019-06-30 16:33] VITALS: BP 106/71
== END 2019-06-30 16:36 | disposition home or self-care (01) ==
LOC: ED 13:02
DX: J06.9 Acute upper respiratory infection, unspecified (principal); J45.909 Unspecified asthma, uncomplicated
CPT/HCPCS: 36415; 80053; 81003; 85025; 86140; 99282

== ENCOUNTER 2019-07-17 10:24 | Emergency (ER) | payer BC ==
--- NOTE | 2019-07-17 10:57 | ED ---
Complex/Multi-Sys Presentation - HPI Summary HPI Summary: 23 year old F referred to [facility] accompanied by male partner complains of intermittent episodes of nausea/vomiting and rhinorrhea x3 days. Patient is 9 weeks . A0. LNMP 04/2019. Has been seen by OB. Is taking vitamins. Had fever 2 days ago for which she took Tylenol with relief. Had hematemesis yesterday AM. No nausea/vomiting since yesterday PM. Called [facility] today and was referred to ED. No nausea/vomiting currently, urinary symptoms, vaginal bleeding. Additionally complains of occasional vaginal cramping and shortness of breath in the morning. The patient rates the pain 0/10 in severity. Symptoms aggravated by nothing. Symptoms alleviated by Tylenol. No alcohol, recreational drugs, tobacco use. - History Of Current Complaint Chief Complaint: EDGeneral Time Seen by Provider: 07/17/19 10:43 Hx Obtained From: Patient Onset/Duration: Lasting Days - 3, Resolved Timing: Intermittent, Lasting: Severity Currently: None Aggravating Factor(s): Nothing Alleviating Factor(s): Tylenol - Allergies/Home Medications Allergies/Adverse Reactions: Allergies Allergy/AdvReac Type Severity Reaction Status Date / Time environmental Allergy Congestion Uncoded 07/17/19 10:26 PMH/Surg Hx/FS Hx/Imm Hx Endocrine/Hematology History: Denies: Hx Diabetes, Hx Thyroid Disease Cardiovascular History: Denies: Hx Hypercholesterolemia, Hx Hypertension Respiratory History: Reports: Hx Asthma, Other Respiratory Problems/Disorders - DX WITH PNEUMONIA 9 DAYS AGO Denies: Hx Chronic Obstructive Pulmonary Disease (COPD) GI History: Denies: Hx Ulcer Sensory History: Denies: Hx Legally Blind, Hx Deafness Opthamlomology History: Denies: Hx Legally Blind - Surgical History Surgery Procedure, Year, and Place: T & A. arthroscopy R hip. wisdom teeth Infectious Disease History: No Infectious Disease History: Denies: Hx Hepatitis, Hx Human Immunodeficiency Virus (HIV), Traveled Outside the [place] in Last 30 Days - Family History Known Family History: Positive: Other - no hx back problems or cancer in either parent Negative: Hypertension, Diabetes, Renal Disease - Social History Alcohol Use: None Hx Substance Use: No Substance Use Type: Reports: None Hx Tobacco Use: No Smoking Status (MU): Never Smoked Tobacco Have You Smoked in the Last Year: No Review of Systems Positive: Fever Positive: Other - rhinorrhea Positive: Shortness Of Breath Positive: Vomiting, Nausea, Other - hematemesis Genitourinary: Negative - vaginal bleeding Positive: no symptoms reported, other - vaginal cramping All Other Systems Reviewed And Are Negative: Yes Physical Exam - Summary Physical Exam Summary: VITAL SIGNS: Reviewed. GENERAL: Patient is a well-developed and nourished FEMALE who is lying comfortable in the stretcher. Patient is not in any acute respiratory distress. HEAD AND FACE: No signs of trauma. No ecchymosis, hematomas or skull depressions. No sinus tenderness. EYES: PERRLA, EOMI x 2, No injected conjunctiva, no nystagmus. EARS: Hearing grossly intact. Ear canals and tympanic membranes are within normal limits. MOUTH: Oropharynx within normal limits. NECK: Supple, trachea is midline, no adenopathy, no JVD, no carotid bruit, no c- spine tenderness, neck with full ROM. CHEST: Symmetric, no tenderness at palpation. LUNGS: Clear to auscultation bilaterally. No wheezing or crackles. CVS: Regular rate and rhythm, S1 and S2 present, no murmurs or gallops appreciated. ABDOMEN: Soft, non-tender. No signs of distention. No rebound, no guarding, and no masses palpated. Bowel sounds are normal. EXTREMITIES: FROM in all major joints, no edema, no cyanosis or clubbing. NEURO: Alert and oriented x 3. No acute neurological deficits. Speech is normal and follows commands. SKIN: Dry and warm. Triage Information Reviewed: Yes Vital Signs On Initial Exam: Initial Vitals Temp Pulse Resp BP Pulse Ox 98.2 F 80 16 126/78 99 07/17/19 10:26 07/17/19 10:26 07/17/19 10:26 07/17/19 10:26 07/17/19 10:26 Vital Signs Reviewed: Yes Procedures - Sedation Patient Received Moderate/Deep Sedation with Procedure: No Diagnostics - Vital Signs Vital Signs Temp Pulse Resp BP Pulse Ox 07/17/19 10:26 98.2 F 80 16 126/78 99 - Laboratory Result Diagrams: 07/17/19 11:15 07/17/19 11:15 Lab Statement: Any lab studies that have been ordered have been reviewed, and results considered in the medical decision making process. Re-Evaluation - Re-Evaluation First Eval Re-Evaluation Time: 11:57 Comment: patient agrees to d/c Complex Multi-Symp Course/Dx Assessment/Plan: This patient is a 23-year-old female who presents to the emergency department with a chief complaint of having nausea and vomiting which subsided yesterday. She has no symptoms today. Blood work without any significant abnormalities except for sodium 134. In the ED course, the patient continues to be asymptomatic. She is tolerating PO without any nausea and vomiting and she has no other complaints. The patient does have any abdominal cramping and she denies any vaginal bleeding or discharge. Therefore I believe that the patient can be safely discharged home with follow-up with her CLINIC NURSE doctor. Patient is hemodynamically stable alert oriented 3. I discussed all the findings and test results with the patient. Patient was instructed to return to the emergency room immediately if any of the symptoms return or worsen. Plan of care was discussed with the patient and she understands and agrees. All questions were answered at patient satisfaction. There were no further complaints or concerns. Lung exam before discharge: CTA B/L. Good air exchange. No wheezing or crackles heard. CVS: S1 and S2 present. No murmurs appreciated. Patient is alert and oriented x 3. Patient is hemodynamically stable. Patient will be discharged home with follow up PCP in the next 2-3 days. - Diagnoses Differential Diagnoses/HQI/PQRI: Urinary Tract Infection, Other - URI Provider Diagnoses: Nausea & vomiting Discharge ED - Sign-Out/Discharge Documenting (check all that apply): Patient Departure - Discharge - Discharge Plan Condition: Stable Disposition: HOME Patient Education Materials: Nausea and Vomiting in (ED) Forms: *Work Release Referrals: Nick Levine MD [Primary Care Provider] - 3 Days Additional Instructions: Follow up with your primary care provider in 3 days. Return to the Emergency Department for new or worsening symptoms. - Billing Disposition and Condition Condition: STABLE Disposition: Home - Attestation Statements Document Initiated by Scribe: Yes Documenting Scribe: Anisa Doss Provider For Whom Scribe is Documenting (Include Credential): Adiel Watts MD Scribe Attestation: IAnisa, scribed for Adiel Watts MD on 07/18/19 at 0735. Scribe Documentation Reviewed: Yes Provider Attestation: The documentation as recorded by the scribe, Anisa Doss accurately reflects the service I personally performed and the decisions made by me, Adiel Watts MD Status of Mohsen Document: Viewed
[2019-07-17 11:24] LABS: ABS Eosinophils 0.1 10^3/ul (0-0.6); ABS Lymphocytes 1.3 10^3/ul (1.0-4.8); ABS Monocytes 0.6 10^3/ul (0-0.8); ABS Neutrophils 4.7 10^3/ul (1.5-7.7); Eosinophil % 0.8 %; Hematocrit 37 % (35-47); Hemoglobin 13.1 g/dL (12.0-16.0); Lymphocyte % 19.1 %; Mean Corpuscular HGB Conc 36 g/dL (31-36); Mean Corpuscular Hemoglobin 32 pg (27-31); Mean Corpuscular Volume 89 fL (80-97); Mean Platelet Volume 8.6 fL (7.4-10.4); Nucleated Red Blood Cells % 0.1; Platelet Count 203 10^3/uL (150-450); Red Blood Count 4.12 10^6 /uL (3.70-4.87); Red Cell Distribution Width 13 % (10-15); White Blood Count 6.7 10^3/uL (3.5-10.8)
[2019-07-17 11:41] LABS: Albumin 3.9 g/dL (3.2-5.2); Albumin/Globulin Ratio 1.6 (1-3); BUN/Creatinine Ratio 10.4 (8-20); Calcium 9.2 mg/dL (8.6-10.3); EGFR African American 133.2 (>60); EGFR Non-African American 110.1 (>60); Globulin 2.5 g/dL (2-4); Potassium 3.7 mmol/L (3.5-5.0); Total Bilirubin 0.4 mg/dL (0.2-1.0); Total Protein 6.4 g/dL (6.4-8.9)
[2019-07-17 12:16] VITALS: BP 111/67
[2019-07-17 12:16] LABS: Urine Appearance Clear; Urine Bilirubin Negative (Negative); Urine Blood Negative (Negative); Urine Color Yellow; Urine Glucose Negative (Negative); Urine Ketones Negative (Negative); Urine Nitrite Negative (Negative); Urine Protein Negative (Negative); Urine Specific Gravity 1.006 (1.010-1.030); Urine Urobilinogen Negative (Negative)
== END 2019-07-17 12:10 | disposition home or self-care (01) ==
LOC: ED 10:24
DX: R11.2 Nausea with vomiting, unspecified (principal); J45.909 Unspecified asthma, uncomplicated
CPT/HCPCS: 36415; 80053; 81003; 85025; 99282

== ENCOUNTER 2019-07-30 11:06 | Emergency (ER) | payer BC ==
[2019-07-30 12:07] LABS: ABS Eosinophils 0.1 10^3/ul (0-0.6); ABS Lymphocytes 1.6 10^3/ul (1.0-4.8); ABS Monocytes 0.7 10^3/ul (0-0.8); ABS Neutrophils 6.7 10^3/ul (1.5-7.7); Eosinophil % 1.2 %; Hematocrit 39 % (35-47); Hemoglobin 13.7 g/dL (12.0-16.0); Lymphocyte % 17.7 %; Mean Corpuscular HGB Conc 35 g/dL (31-36); Mean Corpuscular Hemoglobin 32 pg (27-31); Mean Corpuscular Volume 91 fL (80-97); Platelet Count 228 10^3/uL (150-450); Red Blood Count 4.25 10^6 /uL (3.70-4.87); Red Cell Distribution Width 13 % (10-15); White Blood Count 9.2 10^3/uL (3.5-10.8)
--- NOTE | 2019-07-30 12:28 | ED ---
- HPI Summary HPI Summary: The patient is a 23 y/o F presenting to [facility] accompanied by partner with a chief complaint of sudden onset vaginal bleeding approximately two hours ago, and she is currently gravid at 10 weeks. She reports that she was going to bathroom and upon wiping, she noticed dark red blood. She states that she had to wipe a few times, and she now has a tampon placed. She has not had vaginal bleeding with this before. She has some abdominal cramping which has been present throughout her . She endorses increased fatigue over the last few days, but she denies any fevers, chills, nausea or vomiting. Her last [facility] appointment was on 07/23/19, and US revealed normal intrauterine . She was last sexually active two days ago. LNMP: 05/12/19. PMHx: asthma, arthroscopy, tonsillectomy. Nonsmoker, no EtOH, no substance use. Medications reviewed. Allergies noted. - History of Current Complaint Chief Complaint: EDOBProblems Stated Complaint: 10 WEEKS PREG/BLEEDING PER PT Time Seen by Provider: 07/30/19 12:15 Hx Obtained From: Patient Chief Complaint: Vaginal Bleeding Onset/Duration: Started Hours Ago - two, Still Present Timing: Lasting Hours Severity: Moderate Current Severity: Moderate Pain Intensity: 0 Location of Pain: Diffuse Character: Cramping Aggravating Factors: Nothing Alleviating Factors: Nothing Associated Signs and Symptoms: Positive: Vaginal Bleeding or Discharge, Other: - fatigue. Negative: Fever, Nausea, Vomiting - Assessment Hx Now: No - 3 month bcp - Allergies/Home Medications Allergies/Adverse Reactions: Allergies Allergy/AdvReac Type Severity Reaction Status Date / Time environmental Allergy Congestion Uncoded 07/17/19 10:26 PMH/Surg Hx/FS Hx/Imm Hx Endocrine/Hematology History: Denies: Hx Diabetes, Hx Thyroid Disease Cardiovascular History: Denies: Hx Hypercholesterolemia, Hx Hypertension Respiratory History: Reports: Hx Asthma, Other Respiratory Problems/Disorders - DX WITH PNEUMONIA 9 DAYS AGO Denies: Hx Chronic Obstructive Pulmonary Disease (COPD) GI History: Denies: Hx Ulcer Sensory History: Denies: Hx Legally Blind, Hx Deafness Opthamlomology History: Denies: Hx Legally Blind - Surgical History Surgical History: Yes Surgery Procedure, Year, and Place: T & A. arthroscopy R hip. wisdom teeth Infectious Disease History: No Infectious Disease History: Denies: Hx Hepatitis, Hx Human Immunodeficiency Virus (HIV), Traveled Outside the [place] in Last 30 Days - Family History Known Family History: Positive: Other - no hx back problems or cancer in either parent Negative: Hypertension, Diabetes, Renal Disease - Social History Alcohol Use: None Hx Substance Use: No Substance Use Type: Reports: None Hx Tobacco Use: No Smoking Status (MU): Never Smoked Tobacco Have You Smoked in the Last Year: No Review of Systems Positive: Fatigue. Negative: Fever, Chills Positive: Abdominal Pain - cramping. Negative: Vomiting, Nausea Positive: other - vaginal bleeding All Other Systems Reviewed And Are Negative: Yes Physical Exam - Summary Physical Exam Summary: Constitutional: Well-developed, Well-nourished, Alert. (-) Distressed Skin: Warm, Dry HENT: Normocephalic; Atraumatic Eyes: Conjunctiva normal Neck: Musculoskeletal ROM normal neck. (-) JVD, (-) Stridor, (-) Tracheal deviation Cardio: Rhythm regular, rate normal, Heart sounds normal; Intact distal pulses; Radial pulses are 2+ and symmetric. (-) Murmur Pulmonary/Chest wall: Effort normal. (-) Respiratory distress, (-) Wheezes, (-) Rales Abd: Soft, (-) tenderness, (-) Distension, (-) Guarding, (-) Rebound Musculoskeletal: (-) Edema Lymph: (-) Cervical adenopathy Neuro: Alert, Oriented x3 Psych: Mood and affect Normal Bedside US: Gravid uterus with positive intrauterine . Fetus is moving and has heart rate. Pelvic: Closed cervical os. No blood in vault. - Physical Exam Triage Information Reviewed: Yes Vital Signs Reviewed: Yes Procedures - Sedation Patient Received Moderate/Deep Sedation with Procedure: No Diagnostics - Vital Signs Vital Signs Temp Pulse Resp BP Pulse Ox 07/30/19 11:07 99 F 107 16 154/92 97 - Laboratory Lab Results: Lab Results 07/30/19 Range/Units 11:54 WBC 9.2 (3.5-10.8) 10^3/uL RBC 4.25 (3.70-4.87) 10^6 /uL Hgb 13.7 (12.0-16.0) g/dL Hct 39 (35-47) % MCV 91 (80-97) fL MCH 32 H (27-31) pg MCHC 35 (31-36) g/dL RDW 13 (10-15) % Plt Count 228 (150-450) 10^3/uL MPV 9.0 (7.4-10.4) fL Neut % (Auto) 73.1 % Lymph % (Auto) 17.7 % [place] % (Auto) 7.5 % Eos % (Auto) 1.2 % Baso % (Auto) 0.5 % Absolute Neuts (auto) 6.7 (1.5-7.7) 10^3/ul Absolute Lymphs (auto) 1.6 (1.0-4.8) 10^3/ul Absolute Monos (auto) 0.7 (0-0.8) 10^3/ul Absolute Eos (auto) 0.1 (0-0.6) 10^3/ul Absolute Basos (auto) 0.0 (0-0.2) 10^3/ul Absolute Nucleated RBC 0.0 10^3/ul Nucleated RBC % 0.0 Result Diagrams: 07/30/19 11:54 07/30/19 11:54 Lab Statement: Any lab studies that have been ordered have been reviewed, and results considered in the medical decision making process. Re-Evaluation - Re-Evaluation First Eval Re-Evaluation Time: 13:20 Comment: We discussed all results and plan for discharge. Course/Dx - Course Course Of Treatment: Patient is here with vaginal bleeding in the setting of a 10 week . Patient's had a prior ultrasound showed an IUP. Patient had a CBC which no evidence of anemia. Patient is Rh+. Patient had a bedside ultrasound showed a positive IUP with heart rate present and positive movement. Patient had a vaginal exam showed no cervical os opening and no blood in the vault. Patient was discharged with obgyn f/u. - Diagnoses Provider Diagnoses: Intrauterine , First trimester bleeding Discharge ED - Sign-Out/Discharge Documenting (check all that apply): Patient Departure - Patient will be discharged home. - Discharge Plan Condition: Stable Disposition: HOME Patient Education Materials: Threatened Miscarriage (ED) Forms: *Work Release Referrals: Nick Levine MD [Primary Care Provider] - 3 Days Additional Instructions: Follow up with her [facility] on your scheduled appointment Please return to the emergency department if you have heavy vaginal bleeding, worsening pain, feeling like you are going to faint, any other concerning symptoms Please do not perform any vaginal penetration until being cleared by [facility] - Billing Disposition and Condition Condition: STABLE Disposition: Home - Attestation Statements Document Initiated by Mohsen: Yes Documenting Scribe: Pascale Merritt Provider For Whom Mohsen is Documenting (Include Credential): Dr. Rasta Christian MD Scribe Attestation: I, Pascale Merritt, scribed for Dr. Rasta Christian MD on 07/30/19 at 1503. Scribe Documentation Reviewed: Yes Provider Attestation: The documentation as recorded by the Pascale arellano accurately reflects the service I personally performed and the decisions made by me, Dr. Rasta Christian MD Status of Scribe Document: Viewed
[2019-07-30 12:39] LABS: Albumin 4.1 g/dL (3.2-5.2); Albumin/Globulin Ratio 1.4 (1-3); BUN/Creatinine Ratio 12.9 (8-20); Calcium 9.8 mg/dL (8.6-10.3); EGFR African American 145.6 (>60); EGFR Non-African American 120.4 (>60); Total Bilirubin 0.3 mg/dL (0.2-1.0); Total Protein 7.1 g/dL (6.4-8.9)
[2019-07-30 12:49] LABS: Urine Appearance Clear; Urine Bilirubin Negative (Negative); Urine Blood Negative (Negative); Urine Color Straw; Urine Glucose Negative (Negative); Urine Ketones Negative (Negative); Urine Nitrite Negative (Negative); Urine Protein Negative (Negative); Urine Specific Gravity 1.004 (1.010-1.030); Urine Urobilinogen Negative (Negative)
[2019-07-30 13:49] VITALS: BP 117/70
== END 2019-07-30 13:48 | disposition home or self-care (01) ==
LOC: ED 11:06
DX: O20.9 Hemorrhage in early pregnancy, unspecified (principal); Z3A.10 10 weeks gestation of pregnancy
CPT/HCPCS: 36415; 80053; 81003; 84702; 85025; 86850; 86900; 86901; 99282

== ENCOUNTER 2019-09-23 09:50 | Emergency (ER) | payer BC ==
[2019-09-23 10:25] VITALS: BP 106/49
--- NOTE | 2019-09-23 10:51 | UC ---
Headache HPI - HPI Summary HPI Summary: 24-year-old female who is 18 weeks presents with complaints of severe headache for the past 2 days. States this is the worst headache of her life. Rates pain as a 10/10. Has taken acetaminophen with no relief. Symptoms are associated with nausea, vomiting, lightheadedness, and dizziness. Patient has history of migraines but states that this is not her typical migraine as the pain is different and she does not usually get vomiting with her migraines. Denies visual disturbances, photophobia, slurred or difficulty speaking, numbness, tingling, or weakness of her extremities, chest pain, shortness of breath, or abdominal pain. - History Of Current Complaint Chief Complaint: UCHeadache Stated Complaint: MIGRAINE Time Seen by Provider: 09/23/19 10:37 Hx Obtained From: Patient Hx Last Menstrual Period: 04/2018 Pain Intensity: 10 - Allergies/Home Medications Allergies/Adverse Reactions: Allergies Allergy/AdvReac Type Severity Reaction Status Date / Time environmental Allergy Congestion Uncoded 07/17/19 10:26 PMH/Surg Hx/FS Hx/Imm Hx Neurological History: Migraine - Surgical History Surgical History: Yes Surgery Procedure, Year, and Place: T & A. arthroscopy R hip. wisdom teeth - Family History Known Family History: Positive: Non-Contributory - Social History Occupation: Employed Full-time Lives: With Family Alcohol Use: None Substance Use Type: None Smoking Status (MU): Never Smoked Tobacco Have You Smoked in the Last Year: No Household Exposure Type: Cigarettes - Immunization History Most Recent Influenza Vaccination: FALL 2015 Most Recent Tetanus Shot: UTD Hx Tetanus, Diphtheria Vaccination: Yes Vaccination Up to Date: Yes Review of Systems All Other Systems Reviewed And Are Negative: Yes Constitutional: Negative: Fever, Chills Eyes: Negative: Blurred Vision, Diplopia, Drainage, Eye Redness, Photophobia ENT: Negative: Sore Throat, Nasal Discharge, Sinus Congestion, Sinus Pain/ Tenderness Respiratory: Negative: Shortness Of Breath Cardiovascular: Negative: Chest Pain Gastrointestinal: Positive: Vomiting, Nausea. Negative: Abdominal Pain, Diarrhea Genitourinary: Positive: Negative Musculoskeletal: Positive: Negative Neurological/Mental Status: Positive: Negative Is Patient Immunocompromised?: No Physical Exam - Summary Physical Exam Summary: GENERAL APPEARANCE: Well developed, well nourished, alert and cooperative adult female appears to be uncomfortable but in no acute distress. HEAD: Atraumatic. Normocephalic. EYES: Conjunctiva clear. No drainage. PERRL, EOM intact. Vision is grossly intact. EARS: External auditory canals and tympanic membranes clear, hearing grossly intact. NOSE: No nasal discharge. THROAT: Pharynx normal. Tonsils surgically absent. Uvula midline. NECK: Neck supple, non-tender without lymphadenopathy. CARDIAC: Normal S1 and S2. No S3, S4 or murmurs. Rhythm is regular. There is no peripheral edema, cyanosis or pallor. Extremities are warm and well perfused. Capillary refill is less than 2 seconds. Peripheral pulses intact. LUNGS: Clear to auscultation without rales, rhonchi, wheezing or diminished breath sounds. ABDOMEN: Positive bowel sounds. Soft, nondistended, nontender. No guarding or rebound. No masses or hepatosplenomegally. Fundus consistent with gestational age. MUSKULOSKELETAL: ROM intact to all extremities. No joint erythema or tenderness. Normal muscular development. Normal gait. NEUROLOGICAL: CN II-XII intact. Strength and sensation symmetric and intact throughout. Reflexes 2+ throughout. Cerebellar testing normal. SKIN: Skin normal color, texture and turgor with no lesions or eruptions. Triage Information Reviewed: Yes Vital Signs: Initial Vital Signs Temp 98.0 F 09/23/19 10:20 Pulse 90 09/23/19 10:20 Resp 18 09/23/19 10:20 BP 106/49 09/23/19 10:20 Pulse Ox 99 09/23/19 10:20 Vital Signs Reviewed: Yes Headache Course/Dx - Course Course Of Treatment: 24-year-old female who is 18 weeks presents with complaints of severe headache for the past 2 days. States this is the worst headache of her life. Rates pain as a 10/10. Has taken acetaminophen with no relief. Symptoms are associated with nausea, vomiting, lightheadedness, and dizziness. Patient has history of migraines but states that this is not her typical migraine as the pain is different and she does not usually get vomiting with her migraines. Denies visual disturbances, photophobia, slurred or difficulty speaking, numbness, tingling, or weakness of her extremities, chest pain, shortness of breath, or abdominal pain. Afebrile. Vital signs stable. Patient was neurologically intact and had an overall unremarkable exam however with her reports of worst headache of her life and beginning a typical of her usual migraines I am recommending that she be evaluated in the ER at this time. Patient is agreeable to this and is electing to transport via private vehicle. - Differential Dx/Diagnosis Differential Diagnosis/HQI/PQRI: CVA, Epidural Hematoma, Subdural Hematoma, Migraine, Subarachnoid Hemorrhage, Tension Headache Provider Diagnosis: Headache in - Physician Notifications Discussed Patient Care With: Rasta Christian Time Discussed With Above Provider: 11:00 Instructed by Provider To: MD Will See In ED Discharge ED - Sign-Out/Discharge Documenting (check all that apply): Patient Departure All imaging exams completed and their final reports reviewed: No Studies - Discharge Plan Condition: Stable Disposition: HOME-RECOMMEND TO ED Referrals: Nick Levine MD [Primary Care Provider] - Additional Instructions: with your reports of a severe headache that is not typical of your migraine headaches as well as other symptoms I am recommending that you be evaluated in the emergency room at this time. Please go directly to the emergency room from here for evaluation. - Billing Disposition and Condition Condition: STABLE Disposition: Home-Recommend to ED
== END 2019-09-23 11:02 | disposition home health service (06) ==
LOC: UCEAST 09:50
DX: O99.89 Other specified diseases and conditions complicating pregnancy, childbirth and the puerperium (principal); O21.8 Other vomiting complicating pregnancy; R51 Headache; R42 Dizziness and giddiness; Z91.09 Other allergy status, other than to drugs and biological substances; Z3A.18 18 weeks gestation of pregnancy
CPT/HCPCS: 99212; G0463

== ENCOUNTER 2019-09-23 11:20 | Emergency (ER) | payer BC ==
[2019-09-23 12:02] LABS: ABS Eosinophils 0.1 10^3/ul (0-0.6); ABS Lymphocytes 1.1 10^3/ul (1.0-4.8); ABS Monocytes 0.3 10^3/ul (0-0.8); ABS Neutrophils 4.2 10^3/ul (1.5-7.7); Eosinophil % 1.3 %; Hematocrit 37 % (35-47); Hemoglobin 13.2 g/dL (12.0-16.0); Lymphocyte % 19.4 %; Mean Corpuscular HGB Conc 35 g/dL (31-36); Mean Corpuscular Hemoglobin 32 pg (27-31); Mean Corpuscular Volume 91 fL (80-97); Mean Platelet Volume 8.8 fL (7.4-10.4); Nucleated Red Blood Cells % 0.1; Platelet Count 192 10^3/uL (150-450); Red Cell Distribution Width 13 % (10-15); White Blood Count 5.8 10^3/uL (3.5-10.8)
[2019-09-23 12:17] LABS: Albumin 3.9 g/dL (3.2-5.2); Albumin/Globulin Ratio 1.3 (1-3); BUN/Creatinine Ratio 7.3 (8-20); Calcium 9.1 mg/dL (8.6-10.3); EGFR African American 165.7 (>60); Magnesium 1.9 mg/dL (1.9-2.7); Potassium 3.7 mmol/L (3.5-5.0); Total Bilirubin 0.4 mg/dL (0.2-1.0); Total Protein 6.9 g/dL (6.4-8.9)
--- NOTE | 2019-09-23 12:19 | ED ---
Headache - HPI Summary HPI Summary: Patient is a 24 y/o F presenting to the ED for a chief complaint of constant headache for the last 2 nights. Patient notes nausea, vomiting, dizziness, and lightheadedness. She describes the dizziness as a room-spinning sensation. She states she has been unable to sleep due to the headache. Patient denies numbness , paresthesia, or weakness. Patient has taken Flexaril and Tylenol for the headache without relief. Previously, patient was seen at urgent care and sent to [facility] for further assessment. Patient is 18 weeks and this is her first . Patient has a history of migraines. PSHx is significant for arthroscopy. FMHx of brain aneurysm is denied. Patient denies alcohol, tobacco, or drug use. Medications reviewed. Allergies noted. - History Of Current Complaint Chief Complaint: EDHeadache Stated Complaint: MIGRAIN PER PT Time Seen by Provider: 09/23/19 12:08 Hx Obtained From: Patient Hx Last Menstrual Period: 04/2018 Onset/Duration: Sudden Onset, Started days ago - 2 days, Still Present Initially Headache Was: Severe Currently Pain Is: Severe Timing: Constant Location of Headache: Diffuse Aggravating Factor: Nothing Allevating Factors: Nothing Associated Signs And Symptoms: Dizziness, Nausea, Vomiting - Allergies/Home Medications Allergies/Adverse Reactions: Allergies Allergy/AdvReac Type Severity Reaction Status Date / Time environmental Allergy Congestion Uncoded 09/23/19 12:10 Home Medications: Home Medications Cyclobenzaprine TAB* [Flexeril 10 MG TAB*] 10 mg PO TID PRN 09/23/19 [History Confirmed 09/23/19] PMH/Surg Hx/FS Hx/Imm Hx Previously Healthy: Yes Endocrine/Hematology History: Denies: Hx Diabetes, Hx Thyroid Disease Cardiovascular History: Denies: Hx Hypercholesterolemia, Hx Hypertension Respiratory History: Reports: Hx Asthma, Other Respiratory Problems/Disorders - DX WITH PNEUMONIA 9 DAYS AGO Denies: Hx Chronic Obstructive Pulmonary Disease (COPD) GI History: Denies: Hx Ulcer Sensory History: Denies: Hx Legally Blind, Hx Deafness Opthamlomology History: Denies: Hx Legally Blind EENT History: Denies: Hx Deafness Neurological History: Reports: Hx Migraine - Surgical History Surgical History: Yes Surgery Procedure, Year, and Place: T & A. arthroscopy R hip. wisdom teeth - Immunization History Immunizations Up to Date: Yes Infectious Disease History: No Infectious Disease History: Reports: Traveled Outside the [place] in Last 30 Days Denies: Hx Hepatitis, Hx Human Immunodeficiency Virus (HIV) - Family History Known Family History: Positive: Other - no hx back problems or cancer in either parent Negative: Hypertension, Diabetes, Renal Disease - Social History Occupation: Employed Full-time Lives: With Family Alcohol Use: None Hx Substance Use: No Substance Use Type: Reports: None Hx Tobacco Use: No Smoking Status (MU): Never Smoked Tobacco Have You Smoked in the Last Year: No Review of Systems Positive: Vomiting, Nausea Neurological/Mental Status: Other - Positive dizziness and lightheadedness Positive: Headache. Negative: Weakness, Paresthesia, Numbness All Other Systems Reviewed And Are Negative: Yes Physical Exam - Summary Physical Exam Summary: Constitutional: Well-developed, Well-nourished, Alert. (-) Distressed. Appears comfortable in the bed. Skin: Warm, Dry HENT: Normocephalic; Atraumatic Eyes: Conjunctiva normal Neck: Musculoskeletal ROM normal neck. (-) JVD, (-) Stridor, (-) Tracheal deviation Cardio: Rhythm regular, rate normal, Heart sounds normal; Intact distal pulses; Radial pulses are 2+ and symmetric. (-) Murmur Pulmonary/Chest wall: Effort normal. (-) Respiratory distress, (-) Wheezes, (-) Rales Abd: Soft, (-) tenderness, (-) Distension, (-) Guarding, (-) Rebound. Gravid uterus. Musculoskeletal: (-) Edema Lymph: (-) Cervical adenopathy Neuro: Alert, Oriented x3. NIH Stroke Scale: 0. Psych: Mood and affect Normal Triage Information Reviewed: Yes Vital Signs On Initial Exam: Initial Vitals Temp Pulse Resp BP Pulse Ox 97.2 F 85 18 118/74 99 09/23/19 11:22 09/23/19 11:22 09/23/19 11:22 09/23/19 11:22 09/23/19 11:22 Vital Signs Reviewed: Yes Procedures - Sedation Patient Received Moderate/Deep Sedation with Procedure: No Diagnostics - Vital Signs Vital Signs Temp Pulse Resp BP Pulse Ox 09/23/19 11:22 97.2 F 85 18 118/74 99 - Laboratory Lab Results: Lab Results 09/23/19 Range/Units 11:47 WBC 5.8 (3.5-10.8) 10^3/uL RBC 4.10 (3.70-4.87) 10^6 /uL Hgb 13.2 (12.0-16.0) g/dL Hct 37 (35-47) % MCV 91 (80-97) fL MCH 32 H (27-31) pg MCHC 35 (31-36) g/dL RDW 13 (10-15) % Plt Count 192 (150-450) 10^3/uL MPV 8.8 (7.4-10.4) fL Neut % (Auto) 72.7 % Lymph % (Auto) 19.4 % [place] % (Auto) 5.8 % Eos % (Auto) 1.3 % Baso % (Auto) 0.8 % Absolute Neuts (auto) 4.2 (1.5-7.7) 10^3/ul Absolute Lymphs (auto) 1.1 (1.0-4.8) 10^3/ul Absolute Monos (auto) 0.3 (0-0.8) 10^3/ul Absolute Eos (auto) 0.1 (0-0.6) 10^3/ul Absolute Basos (auto) 0.0 (0-0.2) 10^3/ul Absolute Nucleated RBC 0.0 10^3/ul Nucleated RBC % 0.1 Result Diagrams: 20 11:47 20 11:47 Lab Statement: Any lab studies that have been ordered have been reviewed, and results considered in the medical decision making process. Re-Evaluation - Re-Evaluation First Eval Re-Evaluation Time: 13:15 Change: Unchanged Comment: At 13:15, patient is receiving her medications and states she is feeling unchanged. Second Eval Re-Evaluation Time: 13:40 Change: Improved Comment: At 13:40, patients nausea is resolved, but her headache is still present. Will give IV morphine. Third Eval Re-Evaluation Time: 14:11 Change: Improved Comment: At 14:11, patients headache is slightly improved. Will give magnesium. Fourth Eval Re-Evaluation Time: 15:03 Change: Improved Comment: At 15:03, patients headache is rated as a 6/10. She would like to go home. Headache Course/Dx - Course Course Of Treatment: Patient is here with headache. Patient has a normal neurologic exam is overall well-appearing. Patient is 18 weeks so a preeclampsia workup was performed which was negative. Patient is not hypertensive here. Patient was given IV fluids, Reglan, Fioricet, morphine, and magnesium with eventual proven in her headache. - Diagnoses Provider Diagnoses: , Migraine Discharge ED - Sign-Out/Discharge Documenting (check all that apply): Patient Departure - Discharge - Discharge Plan Condition: Stable Disposition: HOME Prescriptions: Butalb/Acetamin/Caff TAB* [Fioricet TAB*] 1 tab PO Q8HR #5 tab MDD 3 tablets Metoclopramide TAB* [Reglan TAB*] 10 mg PO Q8H #12 tab Patient Education Materials: Migraine Headache (ED) Forms: *Work Release Referrals: Nick Levine MD [Primary Care Provider] - Additional Instructions: PLEASE RETURN TO EMERGENCY DEPARTMENT FOR SEVERE RIGHT-SIDED ABDOMINAL PAIN, ONE -SIDED WEAKNESS, SLURRED SPEECH, OR ANY NEW OR WORSENING SYMPTOMS. Please follow up with your primary care physician and [facility]. Please make all follow- ups in 1-3 days unless I advise you otherwise. - Billing Disposition and Condition Condition: STABLE Disposition: Home - Attestation Statements Document Initiated by Scribe: Yes Documenting Scribe: Arlen Saunders Provider For Whom Mohsen is Documenting (Include Credential): Rasta Christian MD Scribe Attestation: Arlen Marshall, scribed for Rasta Christian MD on 09/23/19 at 1557. Scribe Documentation Reviewed: Yes Provider Attestation: The documentation as recorded by the Arlen arellano accurately reflects the service I personally performed and the decisions made by me, Rasta Christian MD Status of Scribe Document: Viewed
[2019-09-23] MEDS ORDERED: Metoclopramide IV* 5 MG/ML 2 ML VIAL IV ONE (12:21)
[2019-09-23] MEDS ORDERED: NS 0.9% 1000 ML** 1,000 ML IV ONE (12:21)
[2019-09-23] MEDS ORDERED: Butalb/Acetamin/Caff TAB* 1 TAB PO ONE (12:23)
[2019-09-23 13:15] LABS: Urine Appearance Turbid; Urine Bilirubin Negative (Negative); Urine Blood Negative (Negative); Urine Color Yellow; Urine Glucose Negative (Negative); Urine Ketones 1+ (Negative); Urine Nitrite Negative (Negative); Urine Protein Negative (Negative); Urine Specific Gravity 1.011 (1.010-1.030); Urine Urobilinogen Negative (Negative)
[2019-09-23] MEDS ORDERED: Morphine 4 MG/ML VIAL (1 ml) 4 MG/ML VIAL IV ONE (13:40)
[2019-09-23] MEDS ORDERED: Magnesium Sulfate 2 GM IV* 2 GM/50 ML BAG IVPB ONE (14:11)
[2019-09-23 15:26] VITALS: BP 120/70
== END 2019-09-23 15:35 | disposition home or self-care (01) ==
LOC: ED 11:20
DX: G43.909 Migraine, unspecified, not intractable, without status migrainosus (principal); Z3A.18 18 weeks gestation of pregnancy; R42 Dizziness and giddiness; Z79.891 Long term (current) use of opiate analgesic; Z34.92 Encounter for supervision of normal pregnancy, unspecified, second trimester
CPT/HCPCS: 36415; 80053; 81003; 83735; 85025; 99283; A9270-GY; J2270; J2765; J3475